=== PATIENT | female | born 1955 | race Caucasian/White ===

== ENCOUNTER 2019-11-28 13:10 | Emergency (ER) | payer OTHER ==
[2019-11-28] MEDS ORDERED: SODIUM CHLORIDE 0.9% 1000 ML INFUS.BAG IV ONE (13:21)
[2019-11-28 13:24] VITALS: TEMP 98.4; BMI 18.6
[2019-11-28 13:57] LABS: BASO % 1.4 % (0-2.0); EOS % 2.1 % (0-4.5); HEMATOCRIT 38.3 % (32.4-45.2); HEMOGLOBIN 12.6 GM/dl (10.7-15.3); LYMPH % 31.5 % (8-40); MCH 32.2 pg (25.7-33.7); MEAN CELL VOLUME 97.5 fl (80-96); MEAN PLT VOLUME 7.8 fl (7.5-11.1); MONO % 8.8 % (3.8-10.2); NEUT % 56.2 % (42.8-82.8); PLATELET COUNT 267 K/MM3 (134-434); RBC 3.93 M/mm3 (3.60-5.2); RDW 12.4 % (11.6-15.6); WHITE BLOOD COUNT 3.5 K/mm3 (4.0-10.8)
[2019-11-28 14:05] LABS: BILIRUBIN,TOTAL 0.5 mg/dl (0.2-1); CALCIUM 9.2 mg/dl (8.5-10); CREATININE 0.6 mg/dl (0.55-1.3); POTASSIUM 3.9 mmol/L (3.5-5.1); TOT PROT 6.3 g/dl (6.4-8.2)
--- NOTE | 2019-11-28 15:04 | PDOC ---
History of Present Illness - General Chief Complaint: Lightheaded Stated Complaint: DIZZY,FALL Time Seen by Provider: 11/28/19 13:18 - History of Present Illness Initial Comments: 11/28/19 15:26 64 years old with past medical history significant for depression on nortriptyline presents to the emergency department with episode of lightheadedness this morning after standing up. Patient said she stood up quickly felt dizzy lightheaded gently fell forward onto her hands did not sustain any injuries laid down for a while stood up again with change in position again felt lightheaded there was no room spinning came to the emergency department at which time her symptoms have since resolved Currently asymptomatic feels a little bit tired but otherwise well no chest pain shortness of breath headache at any point no nausea vomiting diarrhea no changes to her medications no recent travel or illness. Past History - Past Medical History Allergies/Adverse Reactions: Allergies Allergy/AdvReac Type Severity Reaction Status Date / Time No Known Allergies Allergy Verified 11/28/19 13:12 Home Medications: Ambulatory Orders Aripiprazole [Abilify] 5 mg PO DAILY 05/22/12 Fluvoxamine Maleate [Luvox] 100 mg PO BID 05/22/12 Lamotrigine [Lamictal Xr] 200 mg PO BID 05/22/12 Nortriptyline HCl [Pamelor] 60 mg PO HS 05/22/12 Sumatriptan Succinate [Imitrex *Injection*] 6 mg SQ PRN PRN 05/22/12 Clonazepam 0.5 mg PO BID PRN 11/28/19 Methylphenidate HCl 5 mg PO TID 11/28/19 COPD: No Psychiatric Problems: Yes (DEPRESSION) - Immunization History Td Vaccination: No TDAP Vaccination: No - Psycho Social/Smoking Cessation Hx Smoking Status: No Smoking History: Unknown if ever smoked Have you smoked in the past 12 months: No Number of Cigarettes Smoked Daily: 0 Information on smoking cessation initiated: No Hx Alcohol Use: No Drug/Substance Use Hx: No Review of Systems - Review of Systems Comments:: 11/28/19 15:36 Vitals: Triage Vital signs reviewed General Appearance: No acute distress, well nourished well developed, Head: Atraumatic, Eyes: Pupils equal reactive round, extraocular movement intact Neck: Supple; no Nucal rigidity Chest Wall: Nontender Cardiac: Regular rate and rhythym, no murmurs, no rubs, no gallops, Lungs: Clear to auscultation bilateral, good air movement bilaterally, Abdomen: Soft, non distended, normal bowel sounds, non tender to palpation Extremities: Full range of motion to all extremities, no cyanosis, clubbing, or edema Skin: Warm and dry, no rashes or lesions, no rash, no petechiae Neuro: AOX3; cranial Nerves 2-12 grossly intact, strength intact to all extremities, sensation intact to all extremities, gait normal Psych: Normal mood, normal affect *Physical Exam - Vital Signs Last Vital Signs Temp Pulse Resp BP Pulse Ox 98.4 F 114 H 20 126/77 100 11/28/19 13:11 11/28/19 13:11 11/28/19 13:11 11/28/19 13:11 11/28/19 13:11 - Physical Exam 11/28/19 15:37 ROS: A complete review of 10 out of 10 review of systems is taken and is negative apart from what is previously mentioned below and in the HPI. ED Treatment Course - LABORATORY CBC & Chemistry Diagram: 11/28/19 13:44 11/28/19 13:44 - ADDITIONAL ORDERS Additional order review: Laboratory Results 11/28/19 11/28/19 11/28/19 14:53 13:44 13:44 Sodium 138 Potassium 3.9 Chloride 105 Carbon Dioxide 28 Anion Gap 5 L BUN 23.0 H Creatinine 0.6 Est GFR (CKD-EPI)AfAm 110.86 Est GFR (CKD-EPI)NonAf 95.65 Random Glucose 99 Calcium 9.2 Total Bilirubin 0.5 AST 31 ALT 34 Alkaline Phosphatase 72 Troponin I < 0.03 Total Protein 6.3 L Albumin 4.0 Urine Color Yellow Urine Appearance Clear Urine pH 6.0 Urine Protein Negative Urine Glucose (UA) Negative Urine Ketones Negative Urine Blood Negative Urine Nitrite Negative Urine Bilirubin Negative Urine Urobilinogen 0.2 Ur Leukocyte Esterase Trace H 11/28/19 13:44 RBC 3.93 MCV 97.5 H MCHC 33.0 RDW 12.4 MPV 7.8 Neutrophils % 56.2 Lymphocytes % 31.5 Monocytes % 8.8 Eosinophils % 2.1 Basophils % 1.4 - Medications Given in the ED: ED Medications Discontinued Medications Generic Name Dose Route Start Last Admin Trade Name Freq PRN Reason Stop Dose Admin Sodium Chloride 1,000 ml 11/28/19 13:21 11/28/19 13:48 Normal Saline - IV 11/28/19 13:22 1,000 ml ONCE ONE Administration Medical Decision Making - Medical Decision Making 11/28/19 15:37 Well-appearing no apparent distress with episode of positional lightheadedness Able to ambulate comfortably around the emergency department with a normal neurologic examination We will check labs EKG observe and reassess Reevaluation EKG demonstrates normal sinus rhythm [address] elevations or T wave inversions no evidence of WPW, Brugada, prolonged QT Laboratory analysis unremarkable Patient feels much better ambulating comfortably 1 L normal saline given History examination consistent with positional lightheadedness Patient will follow-up with her doctor tomorrow she will return to the emergency department for any severe worsening symptoms or for any concerns. Findings, the need for follow-up and strict return instructions discussed with patient. Discharge - Discharge Information Problems reviewed: Yes Clinical Impression/Diagnosis: Lightheaded Condition: Fair - Admission No - Follow up/Referral Referrals: Venancio Kurtz MD [Staff Physician] - - Patient Discharge Instructions Additional Instructions: Drink plenty of fluids. Follow-up with your doctor tomorrow. Return to the emergency department for any severe worsening symptoms or for any concerns. - Post Discharge Activity
[2019-11-28 15:06] VITALS: BP 110/61; PULSE 81
--- NOTE | 2019-11-28 15:10 | EKG ---
Test Reason : Blood Pressure : / mmHG Vent. Rate : 097 BPM Atrial Rate : 097 BPM P-R Int : 152 ms QRS Dur : 082 ms QT Int : 330 ms P-R-T Axes : 059 028 073 degrees QTc Int : 419 ms NORMAL SINUS RHYTHM NORMAL ECG NO PREVIOUS ECGS AVAILABLE Confirmed by Luis Miguel Malone MD ([id number]) on 11/28/2019 3:10:04 PM Referred By: SUPA ELIZONDO Confirmed By:Luis Miguel Malone MD
== END 2019-11-28 15:57 | disposition home or self-care (01) ==
LOC: FER 13:10
PROC: 3E0337Z Introduction of Electrolytic and Water Balance Substance into Peripheral Vein, Percutaneous Approach (ICD-10-PCS; principal; 2019-11-28)
DX: R42 Dizziness and giddiness (principal); F32.9 Major depressive disorder, single episode, unspecified
CPT/HCPCS: 36415; 80053; 81003; 81015; 84484; 85025; 87086; 93005; 99284-25; J7030

== ENCOUNTER 2022-09-01 09:36 | Emergency (ER) | payer OTHER, MEDICARE ==
[2022-09-01 10:00] VITALS: BP 114/71; PULSE 110; RESP 20; TEMP 98.2; BMI 17.7
[2022-09-01] MEDS ORDERED: ACETAMINOPHEN 500 MG TABLET (FP) PO ONE (10:17)
[2022-09-01 12:13] LABS: HEMATOCRIT 32.9 % (32.4-45.2); HEMOGLOBIN 10.9 G/dL (10.7-15.3); MCH 32.8 pg (25.7-33.7); MCHC 33.3 g/dl (32.0-36.0); MEAN CELL VOLUME 98.5 fl (80-96); MEAN PLT VOLUME 7.3 fl (7.5-11.1); PLATELET COUNT 437.8 10^3/uL (134-434); RBC 3.34 10^6/uL (3.60-5.2); RDW 12.8 % (11.6-15.6); WHITE BLOOD COUNT 8.8 10^3/uL (4.0-10.8)
[2022-09-01 12:20] LABS: INR 1.05 (0.83-1.09); PROTHROMBIN TIME (PATIENT) 12.1 SEC (9.7-13.0)
[2022-09-01 12:28] LABS: ALBUMIN 3.6 g/dl (3.4-5.0); BILIRUBIN,TOTAL 0.3 mg/dl (0.2-1); CALCIUM 9.1 mg/dl (8.5-10); CREATININE 0.4 mg/dl (0.55-1.3); TOT PROT 6.2 g/dl (6.4-8.2)
[2022-09-01 13:16] LABS: PLATELET ESTIMATE ADEQUATE
[2022-09-01] MEDS ORDERED: diazePAM CARPU-JECT 10 MG/2 ML DISP.SYRIN IVPUSH ONE (13:52)
[2022-09-01] MEDS ORDERED: diazePAM CARPU-JECT 10 MG/2 ML DISP.SYRIN ONE (13:53)
== END 2022-09-01 17:51 | disposition home or self-care (01) ==
LOC: FER 09:36
PROC: 3E033GC Introduction of Other Therapeutic Substance into Peripheral Vein, Percutaneous Approach (ICD-10-PCS; principal; 2022-09-01)
DX: R51.9 Headache, unspecified (principal); R29.818 Other symptoms and signs involving the nervous system; V89.2XXA Person injured in unspecified motor-vehicle accident, traffic, initial encounter
CPT/HCPCS: 0241U-QW; 36415; 70450-TC; 70551-TC; 72128-TC; 72131-TC; 73130-TC-RT-FY; 73502-TC-RT-FY; 73610-TC-LT-FY; 80053; 81003; 82550; 84443; 84484; 85027; 85610; 93005; 99285-25